=== PATIENT | male | born 1975 | race Caucasian/White ===

== ENCOUNTER 2019-10-19 11:45 | Day surgery (SDC) | payer OTHER, SELFPAY ==
--- NOTE | 2019-10-19 12:13 | P.HP_ITS ---
H&P: HPI History of Present Illness Chief complaint: Laceration Right Index Finger Narrative: Frederick Lin is a 43 year old male who works as a apprentice machinist outside. At work today his right index finger was lacerated almost circumferentially. Tendons and bones are intact. There was no dislocation. He is insensate at the ulnar pad. A bridging linear structure is intact across the open wound on the ulnar side which may be the digital nerve. The skin is macerated. PMFSH Comments . Allergy to contrast dye. Has no primary M.D. Has known HTN. History of spleen injuryt age 9. No splenectomy. Meds Home Medications and Allergies Home Medications Medication Instructions Recorded Confirmed Type No Home Medications 10/19/19 10/19/19 History Allergies Allergy/AdvReac Type Severity Reaction Status Date / Time Contrast Media Allergy Mild hives Uncoded 10/19/19 12:14 Exam Narrative: Exam Narrative: Digit well perfused. Stable. Skin macerated. Assessment and Plan Assessment and plan (1) Laceration of finger of right hand with complication: Code(s): S61.219A - Laceration without foreign body of unspecified finger without damage to nail, initial encounter Status: Acute Assessment and Plan: Explore neurovascular bundle and repair laceration.
[2019-10-19 12:17] VITALS: BMI 44.5
[2019-10-19 12:30] VITALS: BP 185/104; PULSE 80; RESP 20; O2SAT 96
[2019-10-19 12:40] VITALS: BP 182/104; PULSE 78; RESP 20; O2SAT 96
[2019-10-19 12:50] VITALS: BP 176/101; PULSE 78; RESP 20; O2SAT 95
[2019-10-19 13:00] VITALS: BP 168/102; PULSE 87; RESP 20; O2SAT 95
--- NOTE | 2019-10-19 13:08 | PM.OP ---
Procedure Note - Brief Procedure Note - Brief Date of procedure: 10/19/19 Pre-op diagnosis: Laceration Right Index Finger Post-op diagnosis: same Procedure performed: Complex repair laceration of right index finger 7.0 cm Anesthesia: local Surgeon: Kiko Brannon MD Estimated blood loss (mL): 5 Tourniquet time (min): 0 Drains: No Packing: No Pathology: none sent Complications: No immediate complications Condition: stable Disposition: same day
[2019-10-19 13:15] VITALS: BP 167/99; PULSE 72; RESP 20; O2SAT 100
--- NOTE | 2019-10-19 13:16 | PM.PROC ---
Procedure Note - Detailed Date of procedure: 10/19/19 Pre-op diagnosis: Laceration Right Index Finger Post-op diagnosis: same Procedure performed: Complex repair of laceration of the right index finger 7 cm. Description of procedure: The patient's digit was noted in the holding area. The confirmed the site. He was taken to the operating room placed supine on the operating table. No anesthetic was utilized it having already been anesthetized in my office. This patient had already received Ancef a in the emergency room earlier this morning. He also received a Tdap there. This was at [place]. I had examined the digit to some degree in the office since he was numb on the radial aspect of the tip. We were able to discern that there was a bridging linear structure but could not absolutely confirmed the nerve was intact. He was brought to the operating room for better examination possibly the use of a microscope. The extremity was prepped and draped in usual fashion. The wound was carefully explored and washed out with the soaking wet saline Ray-Samanta sponges. The neurovascular structure on the radial palmar side was identified and noted to be intact but bruised. We did not note the presence of the digital artery on that side. the wound edges were macerated the laceration was stellate and nearly circumferential . We noted intact extensor and flexor tendon the sheath was not violated on the flexor side. There were no fractures noted on x-ray earlier in the morning. The digit is stable. The joint is stable. The wound margins were trimmed several places with scissors need the edges and the wound flaps were appropriately distributed and repaired with 4-0 interrupted nylon sutures A bulky bandage was applied he is being discharged home with a prescription for hydrocodone 5/325 12. And prescription for Keflex 500 mg t.i.d. 15. Follow-up will be in 4 days Surgeon: Kiko Brannon MD
== END 2019-10-19 13:45 | disposition home or self-care (01) ==
PROVIDERS: Visit Provider Plastic Surgery
PROC: (CPT 13132; principal; 2019-10-19 12:00)
DX: S61.210A Laceration without foreign body of right index finger without damage to nail, initial encounter (principal); W31.82XA Contact with other commercial machinery, initial encounter; Y92.63 Factory as the place of occurrence of the external cause; Y99.0 Civilian activity done for income or pay
CPT/HCPCS: 13132